=== PATIENT | female | born 1980 | race Caucasian/White ===

== ENCOUNTER 2020-08-29 21:28 | Emergency (ER) | payer OTHER ==
[~2020-08-29] VITALS: Ht 170.2 cm; Wt 55.8 kg
[2020-08-29 22:10] VITALS: BP_SYST 144
[2020-08-29] MEDS ORDERED: SER25 PO (22:29)
[2020-08-29] MEDS ORDERED: DULO20CA PO (22:30)
[2020-08-29] MEDS ORDERED: BUSP5TAB3 PO (22:30)
[2020-08-29] MEDS ORDERED: OXYM30MI NS (22:31)
[2020-08-29] MEDS ORDERED: ACETAMINOPHEN 500 MG TABLET ONE (22:48)
[2020-08-29] MEDS ORDERED: ACETAMINOPHEN 500 MG TABLET PO ONE (23:00)
[2020-08-29] MEDS ORDERED: GABAPENTIN 100 MG CAPSULE PO ONE (23:00)
[2020-08-29] MEDS ORDERED: GABAPENTIN 100 MG CAPSULE ONE (23:03)
[2020-08-30 00:10] VITALS: BP_SYST 142
== END 2020-08-30 00:10 ==
LOC: SED 21:28
DX: M54.30 Sciatica, unspecified side (principal); M25.531 Pain in right wrist; M25.532 Pain in left wrist; Z76.0 Encounter for issue of repeat prescription
CPT/HCPCS: 99283